=== PATIENT | female | born 1960 | race Caucasian/White ===

== ENCOUNTER → 2020-02-09 | Outpatient (CLI) | payer OTHER ==
[~2020-02-09] MED LIST: B-12 PO; CALCIUM PO; CELE100C PO; GLUC1TAB9 PO; MAGNESIUM PO; MELA10TA PO; MULT-516 PO; TURMERIC PO; ZINC PO
[2020-02-09 14:50] LABS: BASOPHILS % (AUTO) 1 % (0-1); EOSINOPHILS % (AUTO) 5 % (1-7); LYMPHOCYTES % (AUTO) 28 % (22-44); MEAN CORPUSCULAR HGB CONC 33.8 g/dL (32.4-35.8); MEAN PLATELET VOLUME 7.9 fL (7.4-10.4); MONOCYTES % (AUTO) 5 % (2-9); NEUTROPHILS % (AUTO) 62 % (42-75); PLATELET COUNT 352 x10^3/uL (130-400); RED BLOOD COUNT 4.25 x10^6/uL (3.82-5.3); RED CELL DISTRIBUTION WIDTH 12.5 % (9.6-15.2)
[2020-02-09 14:56] LABS: ALANINE AMINOTRANSFERASE 24 U/L (12-78); ALBUMIN 3.6 g/dL (3.4-5.0); ANION GAP 5 mmol/L (5-15); CALCIUM 8.9 mg/dL (8.5-10.1); CHLORIDE 106 mmol/L (98-107); CREATININE 0.65 mg/dL (0.55-1.02)
[2020-02-09 14:58] LABS: MD NO
[2020-02-09 14:59] LABS: ALKALINE PHOSPHATASE 119 U/L (45-117); BILIRUBIN,TOTAL 0.1 mg/dL (0.2-1.0); TOTAL PROTEIN 7.2 g/dL (6.4-8.2)
[2020-02-09 15:01] LABS: PROTHROMBIN TIME 10.6 Seconds (9.6-11.5)
== END | disposition home or self-care (01) ==
LOC: STAR 13:29
PROVIDERS: ATTEND Orthopaedic Surgery
DX: Z01.810 Encounter for preprocedural cardiovascular examination (principal); Z01.818 Encounter for other preprocedural examination; M16.11 Unilateral primary osteoarthritis, right hip; M25.551 Pain in right hip; Z20.828 Contact with and (suspected) exposure to other viral communicable diseases; Z79.01 Long term (current) use of anticoagulants
CPT/HCPCS: 36415; 80053; 83036; 85025; 85610; 85730; 87081; 93005; U0003

== ENCOUNTER 2020-02-14 08:32 | Day surgery (SDC) | payer OTHER ==
[~2020-02-14] VITALS: Ht 170.2 cm; Wt 68.2 kg
[~2020-02-14 08:32] MED LIST changes: +ACETAMINOPHEN 650 MG/20.3 ML UDC PO PRN; +BISACODYL 10 MG SUPP PR PRN; +CEFAZOLIN PMX 2GM/50ML 50 ML IVPB SCH; +DIPHENHYDRAMINE 50 MG CAPSULE PO PRN; +EPINEPHRINE 1 MG/ML, 1ML ONE; +HYDROcodone/APAP 5/325 TABLET PO PRN; +KETOROLAC 60 MG/2 ML ONE; +MAGNESIUM HYDROXIDE 8%, 30ML UDC PO PRN; +NS + 20MEQ KCL 1,000 ML IV SCH; +ONDANSETRON 2MG/ML, 2ML IV PRN; +ONDANSETRON 4 MG TABLET PO PRN; +OXYcodone IR 5MG TABLET PO PRN; +ROPIvacaine/PF 0.5%, 20 ML ONE; +ROPIvacaine/PF 0.5%, 30 ML ONE; +SENNA/DOCUSATE TABLET PO PRN; +SODIUM CHLORIDE 0.9% 50 ML ONE; +TRANEXAMIC ACID 100 MG/ML, 10ML ONE; +VANCOMYCIN 1,000 MG ONE; +ZOLPIDEM 5MG TABLET PO PRN
[2020-02-14] MEDS ORDERED: GABAPENTIN 300 MG CAPSULE PO STA (08:40)
[2020-02-14] MEDS ORDERED: ACETAMINOPHEN 500 MG TABLET PO STA (08:40)
[2020-02-14] MEDS ORDERED: CHLORHEXIDINE 15 ML UDC MM STA (08:41)
[2020-02-14] MEDS ORDERED: LACTATED RINGERS 1,000 ML IV SCH (08:41)
[2020-02-14] MEDS ORDERED: FENTANYL PF 250 MCG/5ML ONE (08:43)
[2020-02-14] MEDS ORDERED: MIDAZOLAM 1 MG/ML, 2ML ONE (08:43)
[2020-02-14 08:49] VITALS: BP 146/73
[2020-02-14] MEDS ORDERED: ALBUTEROL SULFATE 2.5 MG/3 ML NPPB PRN (09:00)
[2020-02-14] MEDS ORDERED: LABETALOL 5MG/ML, 20ML IV PRN (09:00)
[2020-02-14] MEDS ORDERED: DIAZEPAM 5 MG/ML, 2ML IVPush PRN (09:00)
[2020-02-14] MEDS ORDERED: OXYcodone 5 MG/5 ML ORAL.SOL UDC PO PRN (09:00)
[2020-02-14] MEDS ORDERED: hydrALAzine 20 MG/ML, 1ML IV PRN (09:00)
[2020-02-14] MEDS ORDERED: MEPERIDINE/PF 25MG/0.5ML IVPush PRN (09:00)
[2020-02-14] MEDS ORDERED: DOCUSATE 100 MG CAPSULE PO SCH (09:00)
[2020-02-14] MEDS ORDERED: HYDROmorphone 2 MG/ML, 1ML IVPush PRN (09:00)
[2020-02-14] MEDS ORDERED: PROMETHAZINE 25 MG/ML, 1ML IV PRN (09:00)
[2020-02-14] MEDS ORDERED: ACETAMINOPHEN 325 MG TABLET PO PRN (09:00)
[2020-02-14] MEDS ORDERED: KETOROLAC 30 MG/1 ML IV PRN (09:00)
[2020-02-14] MEDS ORDERED: SCOPOLAMINE 1MG PATCH TD ONE ×2 (09:22)
[2020-02-14] MEDS ORDERED: PROPOFOL 100 ML ONE (09:36)
[2020-02-14] MEDS ORDERED: PROPOFOL 10 MG/ML, 20ML ONE ×2 (09:40→11:33)
[2020-02-14] MEDS ORDERED: SUCCINYLCHOLINE 20 MG/ML, 10ML ONE ×2 (09:40→11:33)
[2020-02-14] MEDS ORDERED: ROCURONIUM 10MG/ML,5ML ONE ×2 (09:40→11:33)
[2020-02-14] MEDS ORDERED: GLYCOPYRROLATE 0.2MG/1ML, 5ML ONE ×2 (09:40→11:33)
[2020-02-14] MEDS ORDERED: ONDANSETRON 2MG/ML, 2ML ONE ×2 (09:40→11:33)
[2020-02-14] MEDS ORDERED: NEOSTIGMINE 1 MG/ML, 10ML ONE ×2 (09:40→11:33)
[2020-02-14] MEDS ORDERED: CEFAZOLIN 1,000 MG ONE ×2 (09:40→11:33)
[2020-02-14] MEDS ORDERED: FENTANYL PF 100 MCG/2ML ONE ×2 (10:17→10:42)
[2020-02-14] MEDS ORDERED: MEPERIDINE/PF 25MG/ML,1ML ONE (10:37)
[2020-02-14] MEDS: FENTANYL PF 100 MCG/2ML IV PRN ×2 (10:45→11:21)
[2020-02-14] MEDS ORDERED: OXYcodone 5 MG/5 ML ORAL.SOL UDC ONE (11:22)
[2020-02-14] MEDS ORDERED: DEXAMETHASONE 4 MG/ML, 1ML ONE (11:33)
[2020-02-14] MEDS ORDERED: ASPIRIN 81 MG TABLET EC PO SCH (18:00)
[2020-02-15] MEDS ORDERED: DEXAMETHASONE 4 MG/ML, 1ML IVPush SCH (06:00)
== END 2020-02-14 15:05 | disposition home or self-care (01) ==
LOC: OUT 08:32
PROVIDERS: ATTEND Orthopaedic Surgery
DX: M16.11 Unilateral primary osteoarthritis, right hip (principal); M25.751 Osteophyte, right hip; Z79.899 Other long term (current) drug therapy; Z87.891 Personal history of nicotine dependence; Z82.61 Family history of arthritis; Z82.3 Family history of stroke; Z82.49 Family history of ischemic heart disease and other diseases of the circulatory system
CPT/HCPCS: 27130; 72170; 73501; 97161; 97165; C1713; C1776; J0171; J0330; J0690; J1100; J1885; J2175; J2250; J2405; J2704; J2710; J2795; J3010; J3370; J7120; 76000